=== PATIENT | male | born 1980 | race Asian ===

== ENCOUNTER 2022-04-24 12:53 | Emergency (ER) | payer OTHER ==
[~2022-04-24] VITALS: Ht 172.7 cm; Wt 70.0 kg
[2022-04-24 13:21] VITALS: BP 145/91
[2022-04-24] MEDS ORDERED: TETanus/Pertussis (Acell)/Diphther VAC/PF (Tdap-Adult) 0.5ml syringe IMVAC ONE (14:20)
[2022-04-24] MEDS ORDERED: LIDOcaine 1% w/EPI 1:100,000 30ml vial (MDV) IJ ONE (14:29)
[2022-04-24] MEDS ORDERED: CEPH250T PO (14:47)
== END 2022-04-24 15:59 | disposition home or self-care (01) ==
LOC: ER 12:53
DX: S61.211A Laceration without foreign body of left index finger without damage to nail, initial encounter (principal); I10 Essential (primary) hypertension; E11.9 Type 2 diabetes mellitus without complications; W26.0XXA Contact with knife, initial encounter; Y93.89 Activity, other specified; Y92.89 Other specified places as the place of occurrence of the external cause; Y99.8 Other external cause status
CPT/HCPCS: 12001; 90471; 90715; 99283; A6449